=== PATIENT | female | born 1980 | race Caucasian/White ===

== ENCOUNTER 2016-12-04 01:35 | Emergency (ER) | payer OTHER ==
[~2016-12-04] VITALS: Ht 162.6 cm; Wt 86.1 kg
[2016-12-04 01:55] LABS: ADD MIUA? YES; BILIRUBIN NEGATIVE; BLOOD SMALL; COLOR STRAW ((YELLOW)); GLUCOSE (STRIP) NEGATIVE; KETONES NEGATIVE; LEUKOCYTES NEGATIVE; NITRITE NEGATIVE; PROTEIN (STRIP) NEGATIVE; SPECIFIC GRAVITY 1.009 (1.000-1.030); UROBILINOGEN 0.2 MG/DL (0.2-1.0)
[2016-12-04 01:57] LABS: BACTERIA RARE /HPF; EPITHELIAL CELLS RARE /HPF; MUCUS TRACE /LPF; RED BLOOD CELLS 0-5 /HPF (0-5); UCUL ADDED? NO; WHITE BLOOD CELLS 0-5 /HPF (0-5)
[2016-12-04 02:15] LABS: HEMATOCRIT 39.1 % (36.0-46.0); MCH 29.4 PG (29.0-34.0); MCHC 33.5 G/DL (30.0-36.0); MCV 87.9 FL (83-99); MEAN PLAT.VOLUME 9.7 uM^3 (9.5-12.4); PLATELET COUNT 301 K/uL (156-360); RBC DIS.WIDTH-CV 12.5 % (11.8-14.6); RBC DIS.WIDTH-SD 40.3 % (39-53); RED BLOOD COUNT 4.45 M/uL (3.80-5.20); WHITE BLOOD COUNT 6.5 K/uL (4.1-10.2)
[2016-12-04 02:23] LABS: CHLORIDE 105 mEq/L (99-109); POTASSIUM 4.3 mEq/L (3.7-5.4); SODIUM 140 mEq/L (136-147)
[2016-12-04 02:25] LABS: GLUCOSE 107 mg/dL (70-99)
[2016-12-04 02:27] LABS: ANION GAP 10 MEQ/L (2-14); TOTAL BILIRUBIN 0.3 mg/dL (0.0-1.0)
[2016-12-04 02:29] LABS: ALKALINE PHOSPHATASE 49 IU/L (3-129); GFR ESTIMATE (CALCULATED) > 59 mL/min/
[2016-12-04 02:30] LABS: UREA NITROGEN (BUN) 11 mg/dL (9-23)
[2016-12-04 02:31] LABS: DIRECT BILIRUBIN 0.1 mg/dL (0.0-0.3)
[2016-12-04 02:32] LABS: LIPASE 56 U/L (1.0-51.0)
[2016-12-04 02:38] LABS: QUANTITATIVE HCG < 4.0 MIU/ML
[2016-12-04] MEDS ORDERED: NORCO 5/3251 TABLET PO (04:40)
[2016-12-04] MEDS ORDERED: ZOFRAN4 MG PO (04:40)
[2016-12-04] MEDS ORDERED: TORADOL10 MG PO (04:40)
[2016-12-04 05:05] VITALS: BP 115/74
== END 2016-12-04 05:08 | disposition home or self-care (01) ==
LOC: EME 01:35
DX: R10.32 Left lower quadrant pain (principal); R31.9 Hematuria, unspecified; Z87.442 Personal history of urinary calculi; Z85.820 Personal history of malignant melanoma of skin
CPT/HCPCS: 74176; 76856; 80048; 80076; 81003; 83690; 84702; 85027; 99281; 99285; J1885; J2270; J2405; J7030